=== PATIENT | female | born 1960 | race Caucasian/White ===

== ENCOUNTER 2017-01-01 10:30 | Day surgery (SDC) | payer OTHER ==
[~2017-01-01] VITALS: Ht 177.8 cm; Wt 72.6 kg
--- NOTE | 2017-01-01 15:23 | NUR ---
01/01/17 1523 [facility] SAT 100, O2 DECREASED TO 6L.
--- NOTE | 2017-01-01 16:08 | NUR ---
COFFEE, ICED WATER GIVEN, PUDDING AND SOUP GIVEN. PT DRINKS COFFEE AND TOLERATES IT WELL. CALL LIGHT W/IN REACH. PT REPORTS 6/10 PAIN AND REPORTS IT FEELS "TIGHT". PATIENT EDUCATION DONE AND SHE VERBALIZES UNDERSTANDING.
[2017-01-01] MEDS ORDERED: TRAMADOL HCL50 MG PO (16:27)
--- NOTE | 2017-01-01 17:32 | NUR ---
MACIE 1715: PT UP TO BR W/2 RN STANDBY. PT AMBULATES WELL AND REPORTS SUCCESSFUL VOID. PT REQ DC HOME. VERBAL DC INSTRUCTIONS GIVEN AND PT VERBALIZES UNDERSTANDING. PT DRESSES SELF AND TRANSFERS SELF WELL FROM STRETCHER TO WC AND WC TO PERSONAL VEHICLE WELL.
--- NOTE | 2017-01-02 08:18 | OR ---
[facility] [address] [place], [place] [address] Signed DATE OF SERVICE: 01/01/2017 PREOPERATIVE DIAGNOSIS: Displaced fracture, base of distal phalanx right hallux with avulsion of the extensor hallucis longus tendon insertion. POSTOPERATIVE DIAGNOSIS: Displaced fracture, base of distal phalanx right hallux with avulsion of the extensor hallucis longus tendon insertion. PROCEDURE: Open reduction and internal fixation, distal phalangeal fracture of the right hallux with extensor hallucis longus repair. SURGEON: Niko Cristobal MD. ANESTHESIA: General. SPECIMENS OR COMPLICATIONS: There were no specimens or complications. Tourniquet time was a little over half an hour. WHAT WAS DONE: The patient taken to the operating room. After anesthesia was induced and airway secured, the patient was positioned and prepped and draped in a routine sterile fashion. The foot was exsanguinated by elevation. Pneumatic tourniquet around the thigh was inflated to 250 mmHg pressure. A hockey-stick incision was made paralleling the distal 2 cm of the EHL and then diverting in the medial direction. Skin was divided sharply. Subcutaneous tissue was bluntly spread. We then able to gently elevate the fracture fragment with the attached EHL insertion. We cleaned out the fracture site, gent l y irrigated it and we were able to reduce it and hold over the small bone clamp. We then secured it with a single 2 mm screw, which gave us good fixation. The wound was gently irrigated. The position was checked fluoroscopically and found to be excellent. After we were comfortable with the alignment and position as seen on biplanar fluoroscopy, the wound was gently irrigated and closed in a standard fashion. A sterile dressing was placed over, which a bulky dressing and a CAM walker boot were placed. The patient was awakened and taken to recovery room and arrived in stable condition. Counts were correct and antibiotic protocols were followed. Niko Cristobal MD Electronically Signed By: NIKO CRISTOBAL MD 01/02/17817 PATIENT NAME: AALIYAHKIKEMELISSASANDRA RAINE OPERATIVE REPORT DATE OF : 62 PHYSICIAN: NIKO CRISTOBAL MD REPORT #: [id number] REPORT IS CONFIDENTIAL AND NOT TO BE RELEASED WITHOUT AUTHORIZATION [address] [place] [address] Signed JOANN/Fabian /[id number] Electronically Signed By: NIKO CRISTOBAL MD 01/02/17817 PATIENT NAME: SANDRA PATE OPERATIVE REPORT DATE OF : 62 PHYSICIAN: NIKO CRISTOBAL MD REPORT #: [id number] REPORT IS CONFIDENTIAL AND NOT TO BE RELEASED WITHOUT AUTHORIZATION
== END 2017-01-01 17:25 | disposition home or self-care (01) ==
LOC: OPS 10:30 → DS 10:30 → OPS 13:00
PROVIDERS: Orthopaedic Surgery
PROC: 0LMV0ZZ Reattachment of Right Foot Tendon, Open Approach (ICD-10-PCS; 2017-01-01)
PROC: 0QSQ0ZZ Reposition Right Toe Phalanx, Open Approach (ICD-10-PCS; principal; 2017-01-01 13:00)
DX: S92.421A Displaced fracture of distal phalanx of right great toe, initial encounter for closed fracture (principal); S96.19 Other specified injury of muscle and tendon of long extensor muscle of toe at ankle and foot level; Z88.5 Allergy status to narcotic agent; X58.XXXA Exposure to other specified factors, initial encounter
CPT/HCPCS: 01480; 62322; 64445; 64447; 64450; 73660; 76942; C1713; J0690; J1100; J1885; J2250; J2405; J2704; J2765; J2795; J3010; J7120; L4386

== ENCOUNTER 2017-07-02 06:10 | Day surgery (SDC) | payer OTHER ==
[~2017-07-02] VITALS: Ht 177.8 cm; Wt 72.6 kg
[~2017-07-02 06:10] MED LIST: TRAMADOL HCL50 MG PO
--- NOTE | 2017-07-02 07:18 | NUR ---
0654-PHENERGAN IVP HELD AFTER LETTING DR. MURILLO KNOW OF SBP 103. INCREASE FLUIDS. AFTER ZOFRAN IVP GIVEN PATIENT REPORTED A LITTLE DIZZYNESS IVF OPEN AND INFUSING. PATIENT DENIES PAIN OR NAUSEA. WATCHING TV.
--- NOTE | 2017-07-02 08:14 | NUR ---
07/02/17 0814 Krysta Ingram 0808-PATIENT ARRIVED TO PACU ON 3L NC O2 SAT 100% PATIENT REACTIVE TO VOICE DENIES PAIN OR NAUSEA. ABDOMEN SOFT. 0813-PATIENT AROUSES TO VERBAL STIMULI DROWSY. BP 76/50 MAP 57 IV FLUIDS OPEN AND INFUSING.
--- NOTE | 2017-07-04 10:58 | OR ---
[facility] [address] [place], [place] [address] Signed DATE OF OPERATION: 07/02/2017 SURGEON: Kat Murillo MD PREOPERATIVE DIAGNOSES: 1. Sigmoidectomy at age 45 for diverticular disease. 2. Mother with history of colonic polyps. POSTOPERATIVE DIAGNOSIS: Moderate pandiverticulosis. PROCEDURE: Colonoscopy without biopsy. ESTIMATED BLOOD LOSS: None. INDICATIONS: Sandra is a 56-year-old female who was asked to see me for colonoscopy. She explained, at age 45, she had a sigmoid resection for diverticular disease. She says overall she has done well since then. However, she has intermittent episodes of left-sided abdominal pain, which she associates with diverticulitis. She cuts back to a liquid diet and it usually goes away. She has been able to avoid antibiotics in this way. She also told me that her mother had colonic polyps removed and also had some type of colon surgery. Sandra told me her last colonoscopy was about 2011 with [facility] in [place], [place]. In the office, I gave her a booklet on diverticulitis and diverticulosis, which she can review in detail. We also reviewed colonoscopy along with its risks including, but not limited to gas, bloating, crampy abdominal pain, bleeding, perforation requiring surgery, and missed diagnosis. We also discussed the need for IV conscious sedation. She told me she is hard to put to sleep and hard to wake up, and she also gets nauseated. Consequently, we gave her some Zofran today in our preop area. We held the Phenergan because her systolic blood pressure was running around 100; however, she said that is common for her. Nevertheless, we did give her 1 L of fluid in our preop area before the procedure. She had expressed understanding and wished to proceed. PROCEDURE NOTE: Sandra was taken into our endoscopy suite and placed in the left lateral decubitus position. She was given 6 mg of Versed and 125 mcg of fentanyl to cover the case. A digital rectal exam was performed, and this was unremarkable. The adult colonoscope was Electronically Signed By: KAT MURILLO MD 07/04/17 1058 PATIENT NAME: SANDRA PATE OPERATIVE REPORT DATE OF : 62 PHYSICIAN: KAT MURILLO MD REPORT #: [id number] REPORT IS CONFIDENTIAL AND NOT TO BE RELEASED WITHOUT AUTHORIZATION [facility] [address] [place], [place] [address] Signed then introduced and advanced under direct visualization with the camera. There was a bit of an angulation at the top of the rectum where her anastomosis was discovered and then it traveled up nicely through the left colon around into the cecum very quickly. She had a relatively short colon. Her prep was good. The scope was then slowly withdrawn. She had moderate diverticula throughout the colon. They were moderate in size, moderate in number, and scattered about. Again, the scope was withdrawn back down through the anastomosis, which had a bit of angulation and down into the rectum. The rectum was unremarkable. Upon retroflexion of the scope, there was no additional pathology noted above the anal canal. After this, the gas was suctioned out and colonoscope removed. Sandra tolerated the procedure quite well. RECOMMENDATIONS: We will see Sandra back in the office in 5 years for repeat colonoscopy due to her mother's history of colonic polyps. MD JAYSON Dickinson/MODL /[id number] cc: PUJA Rios MD Electronically Signed By: KAT MURILLO MD 07/04/17 1058 PATIENT NAME: SANDRA PATE OPERATIVE REPORT DATE OF : 62 PHYSICIAN: KAT MURILLO MD REPORT #: [id number] REPORT IS CONFIDENTIAL AND NOT TO BE RELEASED WITHOUT AUTHORIZATION
== END 2017-07-02 09:22 | disposition home or self-care (01) ==
LOC: DS 06:10 → OPS 06:10 → DS 06:45 → OPS 06:45
PROVIDERS: Colon & Rectal Surgery
PROC: 0DJD8ZZ Inspection of Lower Intestinal Tract, Via Natural or Artificial Opening Endoscopic (ICD-10-PCS; principal; 2017-07-02 06:45)
DX: Z12.11 Encounter for screening for malignant neoplasm of colon (principal); K57.30 Diverticulosis of large intestine without perforation or abscess without bleeding; E03.9 Hypothyroidism, unspecified; K44.9 Diaphragmatic hernia without obstruction or gangrene; Z90.710 Acquired absence of both cervix and uterus; Z90.722 Acquired absence of ovaries, bilateral; Z90.49 Acquired absence of other specified parts of digestive tract; Z83.71 Family history of colonic polyps; Z90.79 Acquired absence of other genital organ(s); Z88.5 Allergy status to narcotic agent
CPT/HCPCS: 99153; G0500; J2250; J2405; J3010; J7120

== ENCOUNTER 2019-05-16 08:55 | Inpatient (IN) | payer OTHER ==
[~2019-05-16] VITALS: Ht 177.8 cm; Wt 72.6 kg
--- NOTE | ~2019-05-16 | DS ---
[facility] [address] [facility] [place] [address] Draft ADMISSION DATE: 05/16/2019 DISCHARGE DATE: 05/19/2019 REASON FOR ADMISSION: This 58-year-old white woman is accompanied by a friend and has had increased a week of increasing epigastric and left upper abdominal pain. She presented to the emergency room where she was evaluated by Dr. Palumbo. She has had recurrent bouts of diverticulitis. In 2003, she underwent sigmoid colectomy for diverticular problems with primary anastomosis. A CT scan was performed, which showed marked edema and thickening and inflammatory change of the mid transverse colon with associated mid transverse colonic diverticula. She was additionally noted to have a possible large but noninflamed duodenal diverticulum. She was admitted for further evaluation and care. PERTINENT PHYSICAL EXAMINATION: GENERAL: Showed a tall, red-headed white woman, who looked to be in [id number]-[id number]-rrjx discomfort. VITAL SIGNS: Temperature 97.6, pulse 90, blood pressure 105/62. HEENT: Mucous membranes were dry. NECK: Trachea midline. CHEST: Clear. HEART: Regular rate and rhythm without murmur. ABDOMEN: Scaphoid and nondistended. There was marked tenderness in the epigastric area. No palpable mass. Left side is normal as is the right side. LABORATORY DATA: White count was 12.0, hematocrit 41.8, platelets 344,000. Urinalysis normal. HOSPITAL COURSE: The patient was admitted and given fluid resuscitation, IV pain medication including nonsteroidal types including IV Tylenol and Toradol and initially treated with IV fluoroquinolone, Levaquin and Flagyl. She had improvement and was given oral antibiotic on May 18, 2019 to include Cipro 500 mg p.o. b.i.d. and Flagyl 250 mg p.o. t.i.d. She was advanced from a clear liquid diet to a full and ultimately low-fiber diet. By day of discharge, she was ambulating well, tolerating a low-fiber diet, has essentially resolution of her abdominal pain. She will maintain on low-fiber diet until I see her back in the office in one month or so. She will call on May 21 to arrange the appointment. DISCHARGE MEDICATIONS: 1. Cipro 500 mg one tablet p.o. b.i.d., #14. PATIENT NAME: SANDRA PATE DISCHARGE SUMMARY DATE OF : 62 REPORT #: [id number] PHYSICIAN: JACKIE BELTRAN MD PCP: HALLIE SOTO REPORT IS CONFIDENTIAL AND NOT TO BE RELEASED WITHOUT AUTHORIZATION [facility] [address] [place], [place] [address] Draft 2. Flagyl 250 mg p.o. t.i.d., #21. 3. Tylenol Extra Strength 500 mg two tablets p.o. q.6 hours p.r.n. pain, #60, refill one. 4. Famotidine 20 mg p.o. q.12 hours, #60, refill zero. DISCHARGE DIAGNOSES: 1. Acute transverse colon diverticulitis. 2. History of sigmoid diverticulitis, status post left colectomy in 2003 with primary anastomosis. 3. Allergy (hydrocodone). Jackie Beltran MD JM/MODL /[id number] cc: PUJA Rios MD Copies: HALLIE SOTO WILLIAM S MD ~ PATIENT NAME: SANDRA PATE DISCHARGE SUMMARY DATE OF : 62 REPORT #: [id number] PHYSICIAN: JACKIE BELTRAN MD PCP: HALLIE SOTO REPORT IS CONFIDENTIAL AND NOT TO BE RELEASED WITHOUT AUTHORIZATION
--- NOTE | 2019-05-16 14:10 | NUR ---
PT TO ROOM VIA [place]GELES TRANSFERS SELF TO BED AFTER USING THE BATHROOM, NO ASSISTANCE NEEDED, PT IS STEADY ON HER FEET. ORIENTED TO ROOM FRIEND IS AT BEDSIDE. CALL LIGHT IN REACH PT DENIES DISCOMFORT OR NEEDS AT THIS TIME.
--- NOTE | 2019-05-16 15:30 | NUR ---
PT C/O THIRST LEMON SWABS PROVIDED WELL A COUPLE OF ICE CHIPS. AGREES SHE IS OTHERWISE COMFORTABLE AT THIS TIME
--- NOTE | 2019-05-16 16:24 | NUR ---
PT HAS BEEN RESTING IN BED SINCE ARRIVING ON MED-SURG. DR BELTRAN IN TO SEE PT NEW ORDERS WRITTEN. PT POVIDED WITH CLEAR LIQUIDS AND MEDICATED FOR PAIN. SHE AGREES TO NOTIFY STAFF TO GET UP, FRIEND REMAINS IN THE ROOM
--- NOTE | 2019-05-16 16:49 | NUR ---
PT SITTING UPRIGHT IN BED, CHEERFUL AND TALKATIVE. TOLERATES CLEAR LIQUIDS WELL. IV INFUSING, FRIEND REMAINS AT BEDSIDE
--- NOTE | 2019-05-16 18:00 | NUR ---
PATIENT RESTING IN BED. PATIENT STATES THAT SHE IS IMPRESSED WITH THE CARE SHE HAS GOTTEN SO FAR AND HAS NO FURTHER NEEDS AT THIS TIME. CALL LIGHT IN REACH.
--- NOTE | 2019-05-16 19:05 | NUR ---
RECEIVED REPORT FROM GAUTAM NAVARRO. pt RESTING IN BED. VISITORS AT BEDSIDE. WHITEBOARD UPDATED. NO REQUESTS AT THIS TIME. CALL LIGHT WITHIN REACH.
--- NOTE | 2019-05-16 21:14 | NUR ---
ASSESSMENT DONE. pt RESTING IN BED. AMBULATED TO TOILET AND BACK TO BED. RATED PAIN 5/10. SCHEDULED MEDS GIVEN (SEE MAR). PROVIDED TEA. NO FURTHER REQUESTS AT THIS TIME. CALL LIGHT WITHIN REACH.
--- NOTE | 2019-05-16 23:06 | NUR ---
ROUNDED ON pt. RESTING WITH EYES CLOSED, RESPIRATIONS REGULAR AND UNLABORED. CALL LIGHT WITHIN REACH.
--- NOTE | 2019-05-17 01:45 | NUR ---
VITALS AND I&O RECORDED. pt RESTING IN BED. REPORTED PAIN IS "OKAY" WHEN LAYING STILL. ASSESSMENT DONE. NO REQUESTS AT THIS TIME. CALL LIGHT WITHIN REACH.
--- NOTE | 2019-05-17 01:53 | NUR ---
VITALS AND I&OS DONE AND CHARTED. BEDSIDE TABLE AND CALL LIGHT IN REACH. PT NEEDS NOTHING AT THIS TIME.
--- NOTE | 2019-05-17 04:36 | NUR ---
CALL LIGHT ON. pt UP TO VOID. SET UP FOR SHOWER PER REQUEST. COFFEE PROVIDED. pt WILL CALL WHEN DONE WITH SHOWER. CALL LIGHT WITHIN REACH.
--- NOTE | 2019-05-17 05:10 | NUR ---
pt REPORTING PAIN. PRN PAIN MED AND SCHEDULED MEDICATION GIVEN (SEE MAR). NO FURTHER REQUESTS AT THIS TIME. CALL LIGHT WITHIN REACH.
--- NOTE | 2019-05-17 07:34 | NUR ---
BEDSIDE REPORT RECEIVED PT APPEARS TO BE RESTING SOUNDLY
--- NOTE | 2019-05-17 07:52 | NUR ---
PATIENT AMBULATED TO BATHROOM AND BACK TO BED. PATIENT STATES SHE ALREADY SHOWERED THIS MORNING AND DOES NOT WANT ANOTHER SHOWER, AM CARE ALREADY DONE. CALL LIGHT IN REACH. NO OTHER NEEDS AT THIS TIME.
--- NOTE | 2019-05-17 08:26 | NUR ---
COFFEE AND JELLO PROVIDED PER PT REQUEST. PT DENIES "PAIN" STATES "IT'S JUST A LITTLE UNCOMFORTABLE AND I KNOW IT'S THERE" DENIES NEED OF INTERVENTION. ENCOURAGED AMBULATION THIS SHIFT, PT VERBALIZES UNDERSTANDING.
--- NOTE | 2019-05-17 09:33 | NUR ---
PATIENT RESTING IN BED, CALL LIGHT IN REACH. FAMILY IN ROOM. NO OTHER NEEDS AT THIS TIME.
--- NOTE | 2019-05-17 10:52 | NUR ---
PT HAS VISITORS X2 VISITS ACITIVELY APPEARS CHEERFUL AND ENGAGED. PT STATES SHE IS ANXIOUS TO SEE DR BELTRAN THIS AM. C/O PAIN A SHORT TIME LATER MEDICATED PER ORDERS
--- NOTE | 2019-05-17 14:00 | NUR ---
PT UP IN THE CHAIR WITH CLEAR LIQUIDS AGREES SHE IS COMFORTABLE. STATES SHE DOES NOT WANT MORPHINE FOR PAIN DISCUSSED PAIN REGIMEN AND WHAT IS AVAILABLE TO HER. SHE AGREES TYLENOL AND TORDOL WILL BE EFFECTIVE DENIES NEED OF ANYTHING OPOID. AGREES TO NOTIFY THIS FSR OF NEEDS
--- NOTE | 2019-05-17 15:50 | NUR ---
CALL LIGHT ANSWERED. PATIENT RESTING IN BED. FAMILY IN ROOM. PATIENT GOES TO USE THE BATHROOM. ONE PERSON ASSISTING. CALL LIGHT WITHIN REACH. NO OTHER NEEDS AT THIS TIME
--- NOTE | 2019-05-17 16:11 | NUR ---
PT CONTINUES WITH NO C/O PAIN OR NAUSEA. VISITORS X3 PT IS VISITING ACTIVELY. HAS TOLERATED CLEAR LIQUIDS WELL THIS SHIFT.
--- NOTE | 2019-05-17 17:58 | NUR ---
PT TOLERATING CLEAR LIQUIDS NO C/O PAIN OR NAUSESA UP IN BED WATCHING TV WITH BOYFRIEND AT BEDSIDE
--- NOTE | 2019-05-17 18:11 | NUR ---
PATIENT RESTING IN BED. VISITOR IN ROOM. VITAL SIGNS AND I&O DONE. CALL LIGHT WITHIN REACH. NO OTHER NEEDS AT THIS TIME
--- NOTE | 2019-05-17 19:01 | NUR ---
RECEIVED REPORT FROM GAUTAM NAVARRO. pt RESTING IN BED. STATED "I'M NOT HURTING RIGHT NOW" VISITORS AT BEDSIDE. CALL LIGHT WITHIN REACH. WHITEBOARD UPDATED.
--- NOTE | 2019-05-17 21:20 | NUR ---
ASSESSMENT DONE. pt REPORTED "IT'S MORE DISCOMFORT THAN PAIN" PRN GIVEN WITH SCHEDULED MEDS (SEE MAR). PROVIDED TEA. NO FURTHER REQUESTS AT THIS TIME. CALL LIGHT WITHIN REACH.
--- NOTE | 2019-05-17 22:15 | NUR ---
ROUNDED ON pt. VITALS AND I&O RECORDED. pt REPORTED THAT "DISCOMFORT IS LESS, STILL THERE BUT LESS" NO REQUESTS AT THIS TIME. CALL LIGHT WITHIN REACH.
--- NOTE | 2019-05-17 22:16 | NUR ---
VITALS AND I&OS DONE AND CHARTED. BEDSIDE TABLE AND CALL LIGHT IN REACH.
--- NOTE | 2019-05-18 00:16 | NUR ---
ROUNDED ON pt. RESTING WITH EYES CLOSED, RESPIRATIONS REGULAR. CALL LIGHT WITHIN REACH.
--- NOTE | 2019-05-18 03:26 | NUR ---
ROUNDED ON pt. RESTING WITH EYES CLOSED, RESPIRATIONS REGULAR AND UNLABORED. CALL LIGHT WITHIN REACH.
--- NOTE | 2019-05-18 04:19 | NUR ---
CALL LIGHT ON. NEW BAG OF IVF INFUSING (SEE MAR). pt REPORTED THAT HER "DISCOMFORT HAS IMPROVED." ASSESSMENT DONE. NO FURTHER REQUESTS AT THIS TIME. CALL LIGHT WITHIN REACH.
--- NOTE | 2019-05-18 05:11 | NUR ---
PAIN MEDICATION GIVEN (SEE MAR). SET pt UP FOR A SHOWER. pt REPORTED PAIN IN THE IV SITE. FLUSHED WELL, NO SIGNS OF INFILATRATION. REMOVED. WILL PLACE A NEW IV POST SHOWER. COFFEE AND WATER PROVIDED. CALL LIGHT WITHIN REACH.
--- NOTE | 2019-05-18 07:31 | NUR ---
PT SITTING UP IN BED ALERT AND ORIENTED, REPORT PAIN IS MUCH BETTER THAN ON ADMIT AND CURRENT PAIN MEDICATIONS ARE MAINTAINING TOLERABLE PAIN LEVELS. AT THIS TIME SHE REPORTS PRESSURE AT RUQ AND LUQ. NO NUASEA.
--- NOTE | 2019-05-18 07:57 | NUR ---
PATIENT RESTING IN BED. RN IN ROOM. PATIENT TOOK A SHOWER EARLY IN THE MORNING. CALL LIGHT WITHIN REACH. NO OTHER NEEDS AT THIS TIME
--- NOTE | 2019-05-18 09:30 | NUR ---
PATIENT RESTING IN BED. IN ROOM. VITAL SIGNS AND I&O DONE. HEAT PACKET PROVIDED. CALL LIGHT WITHIN REACH. NO OTHER NEEDS AT THIS TIME
--- NOTE | 2019-05-18 09:38 | NUR ---
PT S/L TO AMBULATE IN HALLS AT THIS TIME.
--- NOTE | 2019-05-18 11:00 | NUR ---
PT SITTING UP IN BED VISITING WITH MULTIPLE GUESTS IN ROOM.
--- NOTE | 2019-05-18 13:17 | NUR ---
PATIENT SITTING UP IN CHAIR. VITAL SIGNS AND I&O DONE. CALL LIGHT WITHIN REACH. NO OTHER NEEDS AT THIS TIME
--- NOTE | 2019-05-18 13:47 | NUR ---
PT ALERT, ORIENTED, SITTING ON BED AND VISITING WITH FRIEND. INTRO MYSELF, LET PT KNOW I WILL RETURN AND LET HER VISIT. EXTENDED A BLESSING, WILL FOLLOW NEEDED
--- NOTE | 2019-05-18 15:01 | NUR ---
PT ABLE TO TOLERATE 50% OF REGULAR LOW FAT LUNCH. NO INCREASE PAIN, NO NAUSEA
--- NOTE | 2019-05-18 15:26 | NUR ---
PATIENT SITTING UP IN CHAIR. BOYFRIEND IN ROOM. LINENS CHANGED. HEAT PACK PROVIDED. CALL LIGHT WITHIN REACH. NO OTHER NEEDS AT THIS TIME
--- NOTE | 2019-05-18 16:30 | HP ---
[facility] [address] [place], [place] [address] Signed ADMISSION DATE: 05/16/2019 REASON FOR ADMISSION: Severe transverse colon diverticulitis. HISTORY OF PRESENT ILLNESS: This 58-year-old white woman is accompanied by her friend (daughter of Alexsandra Gmaez) and has had a week of increasing epigastric and left upper abdominal pain. She presented to the emergency room where she was evaluated by Dr. Palumbo. She has had recurrent bouts of diverticulitis and it is notable that in 2003, she underwent sigmoid colectomy for diverticular problems with primary anastomosis. Her CT scan performed today showed marked edema and thickening and inflammatory changes of the mid transverse colon with associated mid transverse colonic diverticula. She is admitted for further evaluation and care. She has had no nausea or vomiting, but does have significant pain. She feels thirsty. PAST MEDICAL HISTORY: In addition to sigmoid resection includes daily alcohol use, 1-2 rum and Coke daily as well as marijuana use. SURGICAL HISTORY: Includes sigmoid colectomy, hysterectomy, and left wrist operation. MEDICATIONS: She has no known ongoing medication use otherwise. SOCIAL HISTORY: Her primary provider is Surendra Sofia. The patient lives in [place]. She works for [employer]. She has a life partner. REVIEW OF SYSTEMS: She denies any shortness of breath or chest pains. Had no hematemesis or blood per rectum. Her pain is mostly in the epigastric area. PHYSICAL EXAMINATION: GENERAL: A relatively tall, red-headed white woman, looks to be in nfki-po-mlmvgzen discomfort. VITAL SIGNS: Temperature is 97.6, pulse 90, blood pressure 105/62, room air saturation 99%. Electronically Signed By: JACKIE BELTRAN MD 05/18/19 1630 PATIENT NAME: SANDRA PATE HISTORY AND PHYSICAL DATE OF : 62 REPORT #: [id number] PHYSICIAN: JACKIE BELTRAN MD PCP: SURENDRA SOFIA REPORT IS CONFIDENTIAL AND NOT TO BE RELEASED WITHOUT AUTHORIZATION [facility] [address] [place], [place] [address] Signed HEENT: Mucous membranes are dry. NECK: Trachea is midline. She has no carotid bruit. CHEST: Clear. HEART: Regular without murmur. ABDOMEN: Scaphoid and nondistended. There is tenderness in the epigastric area, but no palpable mass. Left side is relatively normal as is the right side. EXTREMITIES: Show no clubbing, cyanosis, or edema. LABORATORY STUDIES: Show a white count of 12.0, hematocrit 41.8, platelets 344,000. Chem profile shows normal electrolytes and liver enzymes. Urinalysis is essentially normal. I have reviewed a CT scan in detail. Findings do include marked edema and inflammation in mid transverse colon with obvious diverticula as well. There is no sign of actual abscess that I can see and there is no free air. Radiologist interpretation includes a 6 cm mass of the right upper abdomen effacing the gallbladder and pancreas, mostly filled with gas. 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 ASSESSMENT: The patient has recurrent diverticulitis by clinical criteria. She has been treated with antibiotics as an outpatient on several occasions for recurrent diverticulitis. Her imaging study confirmed high probability of acute diverticulitis of the transverse colon, but notably there also appears to be a large duodenal diverticulum and whether or not this may be the underlying problem is uncertain at this time. She has been admitted for IV antibiotics as well as for pain control, IV fluids, and so on. Some review of her chart showed she has undergone colonoscopy by Dr. Jimmy Ly in 2018, showing a single polyp and diverticulosis. She has no family history of colon cancer, but her mother did have colonic polyps. A plan for repeat colonoscopy in [address] Ly's note. MD MADHAVI Mccallum/MODL /[id number] Electronically Signed By: JACKIE BELTRAN MD 05/18/19 1630 PATIENT NAME: SANDRA PATE HISTORY AND PHYSICAL DATE OF : 62 REPORT #: [id number] PHYSICIAN: JACKIE BELTRAN MD PCP: SURENDRA SOFIA REPORT IS CONFIDENTIAL AND NOT TO BE RELEASED WITHOUT AUTHORIZATION [facility] [address] [facility] [place], [place] [address] Signed cc: PUJA Rios Copies: SURENDRA SOFIA ~ Electronically Signed By: JACKIE BELTRAN MD 05/18/19 1630 PATIENT NAME: SANDRA PATE HISTORY AND PHYSICAL DATE OF : 62 REPORT #: [id number] PHYSICIAN: JACKIE BELTRAN MD PCP: SURENDRA SOFIA REPORT IS CONFIDENTIAL AND NOT TO BE RELEASED WITHOUT AUTHORIZATION
--- NOTE | 2019-05-18 16:41 | NUR ---
Gaviota spoke with Monae and Sid. She denies needs for safe dc to home. 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 Just not feeling well for approx 1 month due to diverticulitis. Will dc to home when improved with assist from Sid.
--- NOTE | 2019-05-18 17:42 | NUR ---
PATIENT SITTING UP IN BED. VITAL SIGNS AND I&O DONE. CALL LIGHT WITHIN REACH. NO OTHER NEEDS AT THIS TIME
--- NOTE | 2019-05-18 17:47 | NUR ---
PT HAS BEEN AMBULATING IN HALLS, HER DIET INCREASED TO LOW FIBER DIET FOR LUNCH TOLERATING WELL. PAIN WELL MANAGED WITH TYLENOL ALONE. SHE IS S/L VOIDING WELL. PLAN TO DISCHARGE TOMORROW.
--- NOTE | 2019-05-18 20:17 | NUR ---
RECEIVED REPORT FROM DAY SHIFT RN. PATIENT IS RESTING IN BED. FRIENDS AT THE BEDSIDE. NO PAIN NOTED. CALL LIGHT IN REACH.
--- NOTE | 2019-05-18 22:00 | NUR ---
PATIENT ASSESEMENT COMPLETED. PATIENT IS SITTING UP IN BED WATCHING TV. PATIENT RATES PAIN AT A 1/10 AND DESCRIBES IT MILD DISCOMFORT. PATIENT DENIES ANY NAUSEA. PATIENTS INTAKE AND OUPUT RECORDED. VITALA TAKEN AND RECORDED. SCHEDULED TYLENOL GIVEN FOR PAIN. PATIENT DENIES THE NEED FOR ADDITIONAL PAIN MEDICATION. PATIENTS EVENING MEDICATIONS GIVEN PER ORDER. PATIENTS IV IS SL AND FLUSHES WELL. NO FURTHER NEEDS NOTED. CALL LIGHT IN REACH.
--- NOTE | 2019-05-19 00:28 | NUR ---
PATIENT IS RESTING IN BED WITH EYES CLSOED, RR 17. CALL LIGHT IN REACH.,
--- NOTE | 2019-05-19 02:08 | NUR ---
PATIENT IS RESTING IN BED WITH EYES CLOSED, RR 18. CALL LIGHT IN REACH.
--- NOTE | 2019-05-19 03:51 | NUR ---
PATIENT IS RESTING IN BED WITH EYES CLOSED, RR 17. CALL LIGHT IN REACH.
--- NOTE | 2019-05-19 04:37 | NUR ---
PATIENT RESTED WELL THROUGHOUT THE SHIFT. PATIENT IS ON LOW FIBER DIET, TOLERATING WELL, NO COMPLAINTS OF NAUSEA NOTED. PATIENT IS INDEPENDENT IN THE ROOM. PATIENT IS ON RA. PATIENT IS SL AND IV FLUSHES WELL. PATIENT HAS SCDS ON WHILE IN BED. PATIENT ONLY COMPLAINS OF MILD UPPER ABD DISCOMFORT. PATIENT RECEIVING SCHEDULED TYLENOL PER ORDER. PATIENT HAS DENIED THE NEED FOR ADDDITONAL PAIN MEDICATION. PATIENT IS AAOX3 AND USES CALL LIGHT APPROPRIATELY.
--- NOTE | 2019-05-19 05:16 | NUR ---
PATIENTS MORNING MEDICATIONS GIVEN PER ORDER. PATIENT DENIES ANY PAIN OR NAUSEA. PATIENTS VITALS TAKEN AND RECORDED. INTAKE AND OUPUT RECORDED. PATIENT PROVIDED WITH COFFEE AND WATER. NO FURTHER NEEDS NOTED. CALL LIGHT IN REACH.
--- NOTE | 2019-05-19 08:01 | NUR ---
PATIENT SITTING UP IN CHAIR. LINENS CHANGED. COFFEE GIVEN. CALLL LIGHT WITHIN REACH. NO OTHER NEEDS AT THIS TIME
--- NOTE | 2019-05-19 09:09 | NUR ---
PATIENT SITTING UP IN CHAIR. RN IN ROOM. VITAL SIGNS AND I&O DONE. CALL LIGHT WITHIN REACH. NO OTHER NEEDS AT THIS TIME
--- NOTE | 2019-05-19 09:15 | NUR ---
ADMINISTERED MORNING MEDS. ROBSON IN ROOM.
--- NOTE | 2019-05-19 09:53 | NUR ---
VISITED WITH PT REGARDING HER DISEASE PROCESS, DIET, AND PT WAS VERY SUPPORTIVE, STATES SHE HAS DEALT WITH THIS IN THE PAST. SHE SAYS SHE KNOWS SHE NEEDS TO WATCH WHAT SHE IS EATING AND HOW SHE CAN FEEL BETTER WITH THAT. SHE ALSO SAID THAT ONE OF HER BIGGEST FACTORS THAT UPSET IS STRESS AND THAT SEEMS TO MAKE IT WORSE. PT STATES I KNOW I NEED TO DECREASE THE STRESS IN MY LIFE. PT DENIES FURTHER QUESTIONS STATES SHE UNDERSTANDS HER DZ PROCESS.
--- NOTE | 2019-05-19 10:20 | NUR ---
PATIENT NOW ON A LOW-FIBER DIET. SHE STATES SHE WAS ON A LOW-FIBER DIET BEFORE, BUT IT HAS BEEN SEVERAL YEARS. I REMINDED HER THAT THIS IS TEMPORARY FOR HER GUT TO HEAL. HANDOUT WITH FOODS RECOMMENDED AND FOODS NOT RECOMMENDED PROVIDED. SHE ASKED ABOUT PROBIOTICS, SPECIFICALLY A GREEN SUPERFOOD POWDER THAT YOU MIX IN WATER. I SAID THAT TYPE OF PRODUCT CAN PROVIDE A GOOD SOURCE OF MICRONUTRIENTS, BUT I RECOMMENDED SHE WAIT A COUPLE OF WEEKS TO PREVENT ANY BLOATING OR GI DISCOMFORT THAT THE NEW PRODUCT COULD CAUSE. I RECOMMENDED THAT SHE ASK HER FRIEND FOR A SAMPLE AMOUNT FOR 1 TO 2 DAYS SO SHE COULD TRY IT TO SEE IF SHE CAN TOLERATE IT BEFORE SHE BUYS A TUB OF IT. SHE THOUGHT THAT WAS A GOOD IDEA. MY NAME AND OFFICE # PROVIDED IN CASE SHE HAS QUESTIONS IN THE FUTURE.
--- NOTE | 2019-05-19 11:00 | NUR ---
In and spoke with Monae. She cont. to plan on going home today. States she is feeling much better. Denies needs for home. Plans on discharging home with Sid.
--- NOTE | 2019-05-19 13:11 | NUR ---
PT FINALLY ALONE AFTER MANY VISITORS THIS MORNING. ADMINSTERED SCHEDULED MEDS. PT UP TO RESTROOM. TOLERATING ACTIVITY WELL. PAIN RATED LOW AT 1/10. MOSTLY PRESSURE.
[2019-05-19] MEDS ORDERED: CIPROFLOXACIN500 MG PO (13:29)
[2019-05-19] MEDS ORDERED: METRONIDAZOLE250 MG PO (13:29)
[2019-05-19] MEDS ORDERED: TYLENOL EXTRA500 MG PO (13:30)
[2019-05-19] MEDS ORDERED: FAMOTIDINE20 MG PO (13:30)
--- NOTE | 2019-05-19 13:43 | NUR ---
PATIENT SITTING UP IN CHAIR. VITAL SIGNS AND I&O DONE. CALL LIGHT WITHIN REACH. NO OTHER NEEDS AT THIS TIME
--- NOTE | 2019-05-19 14:39 | NUR ---
PT INVITED ME IN AND ENGAGED IN QUITE A DISCUSSION. 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 PT ADMITTED THAT STRESS IN HER LIFE IS TAKING A HUGE TOLL, AND JUST NEEDED TO TALK. PT REQUESTED PRAYER, GAVE HER A P.SHAWL. WILL FOLLOW NEEDED
== END 2019-05-19 14:30 | disposition home or self-care (01) | DRG 392 ==
LOC: ED 08:55 → MS 13:20
PROVIDERS: ADMIT Surgery
DX: K57.32 Diverticulitis of large intestine without perforation or abscess without bleeding (principal); K57.10 Diverticulosis of small intestine without perforation or abscess without bleeding; Z88.5 Allergy status to narcotic agent; Z90.49 Acquired absence of other specified parts of digestive tract; Z83.71 Family history of colonic polyps
CPT/HCPCS: 36415; 74177; 80053; 81001; 85025; 96361; 99285-25; J0744; J1170; J1885; J2270; J2405; J3480; J7030; J7121; Q9967

== ENCOUNTER 2019-07-17 10:32 | Day surgery (SDC) | payer OTHER ==
[~2019-07-17] VITALS: Ht 177.8 cm; Wt 78.5 kg
[~2019-07-17 10:32] MED LIST changes: +CIPROFLOXACIN500 MG PO; +FAMOTIDINE20 MG PO; +METRONIDAZOLE250 MG PO; +TYLENOL EXTRA500 MG PO
--- NOTE | 2019-07-17 11:38 | NUR ---
07/17/19 1138 Alyson Bob 1131-PT ARRIVES TO PACU ON 3 L VIA NC. PT AWAKE AND RESPONSIVE TO VERBAL STIMULUS. PT DENIES NAUSEA/PAIN. PT BACK TO SLEEP AND SNORING HEARD. PT WAKES EASILY TO VERBAL STIMULUS. SATS >90%. VSS. 1137-BP LOW (89/55). IV FLUID RATE INCREASED. WILL CONTINUE TO MONIOTR. PT LEFT LATERAL AND SLEEPING. OTHER VSS. SATS 100%. PT TITRATED TO RA
--- NOTE | 2019-07-18 10:24 | OR ---
[facility] [address], [place] [address] Signed DATE OF OPERATION: 07/17/2019 SURGEON: Jackie Beltran MD PREOPERATIVE DIAGNOSES: 1. Persistent epigastric and upper abdominal bloating sensation. 2. History of hospitalization for right and mid transverse colon diverticulitis; history of sigmoid resection for diverticulitis greater than [address] scan finding of possible duodenal diverticulum. POSTOPERATIVE DIAGNOSES: 1. Hiatal hernia with Schatzki's ring. 2. Large wide-mouth duodenal diverticulum. PROCEDURE: Esophagogastroduodenoscopy with biopsy. ANESTHESIA: Intravenous sedation, fentanyl 100 mcg, Versed 4 mg. INDICATION: This 58-year-old white woman is a patient of PUJA Smallwood, and was hospitalized by id in April of 2019, for what appeared to be transverse colon diverticulitis. She has a distant history of sigmoid resection for diverticular disease in the [place], [place] in 2003. Her CT scan during recent hospitalization showed a relatively large duodenal diverticulum. She has had episodes of what appears to be clinically sigmoid diverticulitis and was treated by Surendra Sofia with antibiotics and those symptoms have resolved. She is admitted at this time to undergo upper endoscopy to better characterize her upper abdominal symptoms. She currently is taking no medications for reflux or antibiotics or any other medications at this time. She understands risks of bleeding, infection, and perforation related to upper endoscopy and wished to proceed. FINDINGS: Indeed, there was a large wide-mouth duodenal diverticulum apparently in the 2nd portion of the duodenum. She has had no bezoar, inflammation, or ulceration. Remaining duodenum was normal. She also had a large hiatal hernia with a Schatzki's ring. The distal esophagus may have chronic esophagitis otherwise, but no sign of Mcgee's epithelium or other issue. The stomach itself was normal. CLOtest was negative. DESCRIPTION OF PROCEDURE: Electronically Signed By: JACKIE BELTRAN MD 07/18/19 1024 PATIENT NAME: SANDRA PATE OPERATIVE REPORT DATE OF : 62 REPORT #: [id number] PHYSICIAN: JACKIE BELTRAN MD PCP: SURENDRA SOFIA REPORT IS CONFIDENTIAL AND NOT TO BE RELEASED WITHOUT AUTHORIZATION [facility] [address], [place] [address] Signed The patient was brought to the endoscopy suite, given topical Hurricaine spray hypopharyngeal anesthesia, and placed in lateral decubitus position. She was given intravenous sedation to the point of slurred speech and nystagmus with full cardiopulmonary monitoring. A bite block was placed. An Olympus video upper endoscope was passed in the hypopharynx. The vocal cords were normal. The scope was advanced to the esophagus. Throughout its length, it appeared normal, though mildly chronically inflamed distally, but certainly, there was no Mcgee's epithelium. Scope was passed in the stomach, which was insufflated with air. Bilious fluid was suctioned free. Rugal folds appeared normal. Antral motility was reasonable. The pylorus was normal. Scope was passed through into the duodenum. The bulbar and 2nd portion initially were noted to be normal. The scope advanced as far as possible down the duodenum ultimately really to the 4th portion. The scope was withdrawn and in about the 2nd portion was a large wide-mouth duodenal diverticulum. This was at least as large as the lumen of the duodenum itself. There appeared to be no sign of a bezoar or foreign body within the diverticulum. There was no sign of inflammation or ulceration. Photographs were taken of course. The scope was withdrawn and the bulbar portion appeared normal. Scope was then withdrawn to the stomach where biopsies were taken of the antrum for both CHAD and pathologic testing. Retroflexed view confirmed a large hiatal hernia. No sign of ulceration. The scope was manipulated to allow for biopsy of the antrum for both CHAD and pathologic testing. The scope was then withdrawn to the distal esophagus and a Schatzki's ring was clearly identified. This was biopsied and labeled as such. The scope was withdrawn. A distal esophageal and midesophageal biopsies were obtained. The scope was removed. The patient was taken to recovery room in good condition. CONCLUDING DIAGNOSES: 1. Large duodenal diverticulum as clinically suspected. No evidence of retained foreign body or bezoar. No sign of ulceration or neoplasm. 2. Hiatal hernia with Schatzki's ring. PLAN: Her upper abdominal symptoms, which incidentally have been improved since I saw her in the office, may be related to simple reflux and on that basis, we will initiate Prilosec 20 mg p.o. daily. We will see her back in the office in 6 weeks and assess her response to that. Jackie Beltran MD Electronically Signed By: JACKIE BELTRAN MD 07/18/19 [facility] PATIENT NAME: SANDRA PATE OPERATIVE REPORT DATE OF : 62 REPORT #: [id number] PHYSICIAN: JACKIE BELTRAN MD PCP: SURENDRA SOFIA REPORT IS CONFIDENTIAL AND NOT TO BE RELEASED WITHOUT AUTHORIZATION [facility] [address], [place] [address] Signed /[facility] /[id number] cc: PUJA Rios Copies: SURENDRA SOFIA ~ Electronically Signed By: JACKIE BELTRAN MD 07/18/19 1024 PATIENT NAME: SANDRA PATE OPERATIVE REPORT DATE OF : 62 REPORT #: [id number] PHYSICIAN: JACKIE BELTRAN MD PCP: SURENDRA SOFIA REPORT IS CONFIDENTIAL AND NOT TO BE RELEASED WITHOUT AUTHORIZATION
--- NOTE | 2019-07-20 15:35 | PATH ---
[facility] [address], [place] [address] Signed SPECIMEN(S): A ANTRUM/PYLORUS SPECIMEN(S): B SCHATSKI'S RING SPECIMEN(S): C LOWER ESOPHAGUS SPECIMEN(S): D MIDDLE ESOPHAGUS SPECIMEN SOURCE: A. ANTRUM/PYLORUS B. SCHATSKI'S RING C. LOWER ESOPHAGUS D. MIDDLE ESOPHAGUS CLINICAL HISTORY: Reflux, sigmoid resection for diverticulitis. MICROSCOPIC DESCRIPTION: Histologic sections of all submitted blocks are examined by light microscopy. These findings, together with the gross examination, support the pathologic diagnosis. FINAL PATHOLOGIC DIAGNOSIS: A. Stomach, antrum/pylorus, biopsy: - Antral/oxyntic mucosa with no histopathologic abnormality. - Negative for Helicobacter organisms on HE stain. - Negative for dysplasia or malignancy. B. Esophagus, Schatski's ring, biopsy: - Fragments of squamocolumnar junctional mucosa with chronic inflammation and reactive epithelial changes. - Negative for intestinal metaplasia, dysplasia, or malignancy. - See comment. C. Esophagus, lower, biopsy: - Squamous mucosa with changes consistent with reflux esophagitis. - Negative for intestinal metaplasia, dysplasia, or malignancy. D. Esophagus, middle, biopsy: - Squamous mucosa with mild chronic inflammation and reactive epithelial changes, suggestive of reflux esophagitis. - Negative for intestinal metaplasia, dysplasia, or malignancy. COMMENT: The findings in the specimen submitted as "Schatski's ring" (B) are consistent with an esophageal mucosal (Schatski) ring. Correlation with endoscopic findings is recommended. NAL:cml:[id number] PATIENT NAME: SANDRA PATE PATHOLOGY DATE OF : 62 REPORT #: [id number] PHYSICIAN: MATEUSZ WISE PCP: HALLIE SOTO REPORT IS CONFIDENTIAL AND NOT TO BE RELEASED WITHOUT AUTHORIZATION [facility] [address], [place] [address] Signed GROSS DESCRIPTION: Four specimens are received in four containers, labeled "CR." A. The specimen, labeled "CR, antrum/pylorus," is received in formalin and consists of two pink-jolly soft tissue fragments that measure 0.1-0.2 cm in greatest dimension. The specimen is entirely submitted in cassette (A1). B. The specimen, labeled "CR, Schatski's ring," is received in formalin and consists of two pink-jolly soft tissue fragments that measure 0.1-0.4 cm in greatest dimension. The specimen is entirely submitted in cassette (B1). C. The specimen, labeled "CR, lower esophagus biopsy," is received in formalin and consists of two pink-jolly soft tissue fragments that measure 0.1-0.2 cm in greatest dimension. The specimen is entirely submitted in cassette (C1). D. The specimen, labeled "CR, middle esophagus biopsy," is received in formalin and consists of two pink-jolly soft tissue fragments that measure 0.1-0.3 cm in greatest dimension. The specimen is entirely submitted in cassette (D1). JS (under the direct supervision of a pathologist) The Gross Description was prepared using a voice recognition system. The report was reviewed for accuracy; however, sound-alike word errors, addition and/or deletions may occur. If there is any question about this report, please contact Client Services. PERFORMING LABORATORY: The technical component was performed by [facility], [address] [place] [id number] (Nursing Unit Coordinator: Mari Allen MD; CLIA# [id number]). Professional interpretation was performed by [facility], [facility], [address] [place] [id number] (CLIA# [id number]). Diagnostician: Sylvia Bautista MD Pathologist Electronically Signed 07/20/2019 Copies: ~ PATIENT NAME: SANDRA PATE PATHOLOGY DATE OF : 62 REPORT #: [id number] PHYSICIAN: [facility] PCP: HALLIE SOTO REPORT IS CONFIDENTIAL AND NOT TO BE RELEASED WITHOUT AUTHORIZATION
== END 2019-07-17 12:15 | disposition home or self-care (01) ==
LOC: OPS 10:32 → DS 10:32 → OPS 11:30
PROVIDERS: Surgery
PROC: 0DB78ZX Excision of Stomach, Pylorus, Via Natural or Artificial Opening Endoscopic, Diagnostic (ICD-10-PCS; 2019-07-17)
PROC: 0DB18ZX Excision of Upper Esophagus, Via Natural or Artificial Opening Endoscopic, Diagnostic (ICD-10-PCS; 2019-07-17)
PROC: 0DB28ZX Excision of Middle Esophagus, Via Natural or Artificial Opening Endoscopic, Diagnostic (ICD-10-PCS; 2019-07-17)
PROC: 0DB38ZX Excision of Lower Esophagus, Via Natural or Artificial Opening Endoscopic, Diagnostic (ICD-10-PCS; principal; 2019-07-17 11:30)
DX: K22.2 Esophageal obstruction (principal); K21.0 Gastro-esophageal reflux disease with esophagitis; K57.10 Diverticulosis of small intestine without perforation or abscess without bleeding; K44.9 Diaphragmatic hernia without obstruction or gangrene; Z88.5 Allergy status to narcotic agent
CPT/HCPCS: 99153; G0500; J2250; J3010